=== PATIENT | male | born 1960 | race Caucasian/White ===

== ENCOUNTER 2025-01-04 07:46 | Inpatient (IN) | payer BC ==
[2025-01-04] VITALS (7 sets, daily range): BP systolic 128–140; BP diastolic 69–78; PULSE 79–81; RESP 16–20; TEMP 36.5–36.89184; O2SAT 98–99
[~2025-01-04] VITALS: Ht 175.3 cm; Wt 94.1 kg
[2025-01-04 08:25] LABS: BASOPHILS % 0.9 % (0.0-2.0); EOSINOPHILS % 0.1 % (0.0-5.0); HEMATOCRIT. 23.3 % (42.0-52.0); HEMOGLOBIN. 7.7 g/dL (14.0-18.0); LYMPHOCYTES % 13.6 % (20.0-50.0); MEAN PLATELET VOLUME 8.8 fl (7.4-10.4); MONOCYTES % 4.4 % (2.0-8.0); NEUTROPHILS % 81.0 % (40.0-76.0); PLATELET 332 x1000/uL (130-400); RED BLOOD CELL COUNT 2.43 mill/uL (4.7-6.1); RED CELL DISTRIBUTION WIDTH 15.4 % (11.6-14.6)
[2025-01-04 08:38] LABS: INR 1.0
[2025-01-04 08:41] LABS: CREATININE 1.9 mg/dL (0.6-1.3); UREA NITROGEN BLOOD 62 mg/dL (9-23)
[2025-01-04 08:43] LABS: ASPARTATE AMINOTRANSFERASE 10 IU/L (<34); BILIRUBIN DIRECT 0.2 mg/dL (<=3.0); BILIRUBIN TOTAL 0.9 mg/dL (0.1-1.0); PROTEIN TOTAL 6.5 g/dL (6.0-8.3)
[2025-01-04] MEDS: PANTOPRAZOLE SODIUM 40 MG/VIAL IV ONE (09:50)
[2025-01-04] MEDS ORDERED: MAGNESIUM/ALUMINUM HYDROXIDE/SIMETHICONE 30ML UDC PO PRN (11:30)
[2025-01-04] MEDS ORDERED: ACETAMINOPHEN 325MG TABLET PO PRN (11:30)
[2025-01-04] MEDS ORDERED: CLONIDINE 0.1MG TABLET PO PRN (11:30)
[2025-01-04] MEDS ORDERED: ONDANSETRON HCL 4MG/2ML INJ IV PRN (11:30)
[2025-01-04] MEDS ORDERED: MVI, ADULT NO.1 10 ML, FOLIC ACID 1 MG, THIAMINE HCL 100 MG in SODIUM CHLORIDE 0.9% 1,0... IV SCH (11:30)
[2025-01-04] MEDS ORDERED: HYDROCODONE/ACETAMINOPHEN 5/325MG TABLET PO PRN (11:30)
[2025-01-04] MEDS ORDERED: NALOXONE HCL 0.4MG/ML VIAL IV PRN (11:30)
[2025-01-04] MEDS ORDERED: ZOLPIDEM TARTRATE 5MG TABLET PO PRN (11:30)
[2025-01-04] MEDS ORDERED: MORPHINE SULFATE 2 MG/ML INJ (NOT FOR IM USE) IV PRN (11:30)
[2025-01-04 12:07] LABS: CLARITY URINE CLEAR (CLEAR); COLOR URINE YELLOW (YELLOW); GLUCOSE URINE NEGATIVE (NEGATIVE); KETONES URINE NEGATIVE (NEGATIVE); LEUKOCYTE ESTERASE URINE NEGATIVE (NEGATIVE); NITRITE URINE NEGATIVE (NEGATIVE); OCCULT BLOOD URINE NEGATIVE (NEGATIVE); PH URINE 5.0 (4.5-8.0); PROTEIN URINE NEGATIVE (NEGATIVE); SPECIFIC GRAVITY URINE 1.021 (1.005-1.030); UROBILINOGEN URINE 0.2 E.U./dL (0.2-1.0)
[2025-01-04 12:25] LABS: *AMPHETAMINES SCREEN URINE NEGATIVE (NEGATIVE); *BARBITURATES SCREEN URINE NEGATIVE (NEGATIVE); *BENZODIAZEPINES SCREEN URINE NEGATIVE (NEGATIVE); *COCAINE SCREEN URINE NEGATIVE (NEGATIVE); CANNABINOID URINE SCREEN NEGATIVE (NEGATIVE); ECSTASY MDMA SCREEN URINE NEGATIVE (NEGATIVE); METHADONE URINE SCREEN NEGATIVE (NEGATIVE); OPIATES URINE SCREEN NEGATIVE (NEGATIVE); PHENCYCLIDINE URINE SCREEN NEGATIVE (NEGATIVE)
[2025-01-04] MEDS: PANTOPRAZOLE 40MG DR TABLET PO SCH (17:12)
[2025-01-04] MEDS: SUCRALFATE 1G TABLET PO SCH (17:12)
[2025-01-04] MEDS: MVI, ADULT NO.1 10 ML, FOLIC ACID 1 MG, THIAMINE HCL 100 MG in SODIUM CHLORIDE 0.9% 1,0... IV SCH (19:04)
[2025-01-04] MEDS: POTASSIUM CHLORIDE 20MEQ/PACKET PO NR (19:05)
[2025-01-04] MEDS: SODIUM CHLORIDE 0.9% 1,000 ML IV SCH (20:18)
[2025-01-04 20:27] LABS: FOLIC ACID (FOLATE) SERUM 17.39 ng/mL (>5.38)
[2025-01-04 20:28] LABS: VITAMIN B12 SERUM 472 pg/mL (211-911)
[2025-01-05] VITALS: BP 125/75; PULSE 75; RESP 18; TEMP 36.4; O2SAT 99
[2025-01-05 04:04] VITALS: BP 130/71; PULSE 85; RESP 17; TEMP 36.3; O2SAT 99
[2025-01-05 07:47] LABS: BASOPHILS % 0.8 % (0.0-2.0); EOSINOPHILS % 1.4 % (0.0-5.0); HEMATOCRIT. 22.7 % (42.0-52.0); HEMOGLOBIN. 7.7 g/dL (14.0-18.0); LYMPHOCYTES % 22.2 % (20.0-50.0); MEAN PLATELET VOLUME 8.6 fl (7.4-10.4); MONOCYTES % 6.6 % (2.0-8.0); NEUTROPHILS % 69.0 % (40.0-76.0); PLATELET 298 x1000/uL (130-400); RED BLOOD CELL COUNT 2.45 mill/uL (4.7-6.1); RED CELL DISTRIBUTION WIDTH 16.2 % (11.6-14.6)
[2025-01-05 08:00] VITALS: BP 132/60; PULSE 88; RESP 18; TEMP 36.1; O2SAT 98
[2025-01-05 08:08] LABS: CREATININE 1.7 mg/dL (0.6-1.3); UREA NITROGEN BLOOD 47.0 mg/dL (9-23)
[2025-01-05] MEDS ORDERED: PANTOPRAZOLE SODIUM 40 MG/VIAL IV SCH (09:00)
== END 2025-01-05 11:00 | disposition left against medical advice (07) | DRG 378 ==
LOC: ER 07:46 → 6WST 09:28 → EDBEDREQTM 09:31 → EDBEDREQ 09:31 → ENRESERV 12:34
PROVIDERS: ADMIT Internal Medicine; ATTEND Internal Medicine
DX: K57.31 Diverticulosis of large intestine without perforation or abscess with bleeding (principal); D62 Acute posthemorrhagic anemia; N17.9 Acute kidney failure, unspecified; E87.6 Hypokalemia; Z53.29 Procedure and treatment not carried out because of patient's decision for other reasons; F10.10 Alcohol abuse, uncomplicated; I10 Essential (primary) hypertension; E78.5 Hyperlipidemia, unspecified
CPT/HCPCS: 36415; 71045; 74174; 80048; 80076; 80305; 81003; 82607; 82728; 82746; 83540; 83550; 84443; 85014; 85018; 85025; 85044; 86850; 86900; 86920; 93005; 93970; 99291; J2470; J3411; J3490; J7030; P9016

== ENCOUNTER 2025-01-08 08:00 | Inpatient (IN) | payer BC ==
[~2025-01-08] VITALS: Ht 172.7 cm; Wt 108.9 kg
[2025-01-08] VITALS (11 sets, daily range): BP systolic 112–136; BP diastolic 68–78; PULSE 68–83; RESP 15–18; TEMP 36.4–37.05852; O2SAT 99–100
[2025-01-08 08:29] LABS: BASOPHILS % 0.6 % (0.0-2.0); EOSINOPHILS % 0.5 % (0.0-5.0); LYMPHOCYTES % 18.5 % (20.0-50.0); MEAN PLATELET VOLUME 8.3 fl (7.4-10.4); MONOCYTES % 5.5 % (2.0-8.0); NEUTROPHILS % 74.9 % (40.0-76.0); PLATELET 341 x1000/uL (130-400); RED BLOOD CELL COUNT 1.55 mill/uL (4.7-6.1); RED CELL DISTRIBUTION WIDTH 17.0 % (11.6-14.6)
[2025-01-08 08:33] LABS: HEMATOCRIT. 15.0 % (42.0-52.0); HEMOGLOBIN. 5.0 g/dL (14.0-18.0)
[2025-01-08 08:38] LABS: CREATININE 1.8 mg/dL (0.6-1.3); UREA NITROGEN BLOOD 44 mg/dL (9-23)
[2025-01-08 08:40] LABS: TROPONIN I HIGH SENSITIVITY 9 ng/L (3.0-53)
[2025-01-08 08:42] LABS: INR 1.0
[2025-01-08 08:59] LABS: ASPARTATE AMINOTRANSFERASE 9 IU/L (<34); BILIRUBIN DIRECT 0.2 mg/dL (<=3.0); BILIRUBIN TOTAL 0.5 mg/dL (0.1-1.0); PROTEIN TOTAL 5.4 g/dL (6.0-8.3)
[2025-01-08] MEDS: PANTOPRAZOLE SODIUM 40 MG/VIAL IV ONE (09:22)
[2025-01-08] MEDS: PANTOPRAZOLE 80 MG in SODIUM CHLORIDE 0.9% 100 ML IV SCH (09:45)
[2025-01-08] MEDS ORDERED: ATOR10TA69 PO (10:00)
[2025-01-08] MEDS ORDERED: SUCR1TAB PO (10:00)
[2025-01-08] MEDS ORDERED: ONDANSETRON HCL 4MG/2ML INJ IV PRN (10:00)
[2025-01-08] MEDS ORDERED: GUAIFENESIN 200MG/10ML SUGAR FREE UDC PO PRN (10:00)
[2025-01-08] MEDS ORDERED: FAMO20TA8 PO (10:00)
[2025-01-08] MEDS ORDERED: IPRATROPIUM/ALBUTEROL 0.5-3(2.5)MG/3ML NEB HHN PRN (10:00)
[2025-01-08] MEDS ORDERED: DEXTROSE 50% WATER 50ML SYRINGE IV PRN (10:00)
[2025-01-08] MEDS: POTASSIUM CHLORIDE 20MEQ TABLET SR PO SCH (10:27)
[2025-01-08] MEDS: BLOOD SUGAR DIAGNOSTIC STRIP TEST SCH (10:27)
[2025-01-08 10:38] LABS: CLARITY URINE CLEAR (CLEAR); COLOR URINE YELLOW (YELLOW); GLUCOSE URINE NEGATIVE (NEGATIVE); KETONES URINE NEGATIVE (NEGATIVE); LEUKOCYTE ESTERASE URINE NEGATIVE (NEGATIVE); NITRITE URINE NEGATIVE (NEGATIVE); OCCULT BLOOD URINE NEGATIVE (NEGATIVE); PH URINE 5.0 (4.5-8.0); PROTEIN URINE TRACE (NEGATIVE); SPECIFIC GRAVITY URINE 1.019 (1.005-1.030); UROBILINOGEN URINE 0.2 E.U./dL (0.2-1.0)
[2025-01-08 10:53] LABS: HYALINE CASTS URINE 0-5 /lpf; SQUAMOUS EPITHELIAL CELL URINE FEW /lpf (RARE/1+)
[2025-01-08 10:57] LABS: BACTERIA URINE NONE SEEN; RBC URINE NONE SEEN /hpf (0-2); WBC URINE 0-2 /hpf (0-2)
[2025-01-08 11:03] LABS: *AMPHETAMINES SCREEN URINE NEGATIVE (NEGATIVE); *BARBITURATES SCREEN URINE NEGATIVE (NEGATIVE); *BENZODIAZEPINES SCREEN URINE NEGATIVE (NEGATIVE); *COCAINE SCREEN URINE NEGATIVE (NEGATIVE); CANNABINOID URINE SCREEN NEGATIVE (NEGATIVE); ECSTASY MDMA SCREEN URINE NEGATIVE (NEGATIVE); METHADONE URINE SCREEN NEGATIVE (NEGATIVE); OPIATES URINE SCREEN NEGATIVE (NEGATIVE); PHENCYCLIDINE URINE SCREEN NEGATIVE (NEGATIVE)
[2025-01-08] MEDS: LACTATED RINGERS 1,000 ML IV ONE (11:15)
[2025-01-08 16:00] LABS: FOLIC ACID (FOLATE) SERUM 14.72 ng/mL (>5.38); VITAMIN B12 SERUM 375 pg/mL (211-911)
[2025-01-08 22:42] LABS: ETHANOL BLOOD < 10 mg/dL (<10)
[2025-01-08 22:44] LABS: CREATINE KINASE MB FRACTION < 0.5 ng/mL (0.5-3.6); PHOSPHORUS 2.9 mg/dL (2.5-4.9); TROPONIN I HIGH SENSITIVITY 9 ng/L (3.0-53)
[2025-01-08] MEDS: PANTOPRAZOLE SODIUM 40 MG/VIAL IV SCH (22:49)
[2025-01-09] VITALS (16 sets, daily range): BP systolic 109–157; BP diastolic 64–109; PULSE 65–91; RESP 11–21; TEMP 36.3–37.05852; O2SAT 98–100
[2025-01-09 06:52] LABS: INR 1.0
[2025-01-09 06:54] LABS: BASOPHILS % 0.7 % (0.0-2.0); EOSINOPHILS % 1.7 % (0.0-5.0); HEMATOCRIT. 23.2 % (42.0-52.0); HEMOGLOBIN. 7.9 g/dL (14.0-18.0); LYMPHOCYTES % 20.5 % (20.0-50.0); MEAN PLATELET VOLUME 8.8 fl (7.4-10.4); MONOCYTES % 7.1 % (2.0-8.0); NEUTROPHILS % 70.0 % (40.0-76.0); PLATELET 250 x1000/uL (130-400); RED BLOOD CELL COUNT 2.47 mill/uL (4.7-6.1); RED CELL DISTRIBUTION WIDTH 15.4 % (11.6-14.6)
[2025-01-09 06:57] LABS: CREATINE KINASE MB FRACTION < 0.5 ng/mL (0.5-3.6)
[2025-01-09 06:58] LABS: TROPONIN I HIGH SENSITIVITY 10 ng/L (3.0-53)
[2025-01-09 07:00] LABS: CREATININE 1.7 mg/dL (0.6-1.3)
[2025-01-09 07:01] LABS: LDL CHOLESTEROL 48 mg/dL (5-100); T4 FREE 0.94 ng/dL (0.89-1.76); TRIGLYCERIDE 159 mg/dL (0-150); UREA NITROGEN BLOOD 31 mg/dL (9-23)
[2025-01-09 07:03] LABS: PHOSPHORUS 2.9 mg/dL (2.5-4.9)
[2025-01-09] MEDS: KCL 20MEQ/100ML PREMIX 100 ML IV NR (10:29)
[2025-01-09] MEDS ORDERED: LIDOCAINE HCL 1% 10 MG/ML 10ML VIAL ONE ×2 (11:14)
[2025-01-09] MEDS ORDERED: PROPOFOL 200MG/20ML VIAL IV ONE ×2 (11:14)
[2025-01-09] MEDS ORDERED: ONDANSETRON HCL 4MG/2ML INJ IV PRN (11:45)
[2025-01-09] MEDS ORDERED: ACETAMINOPHEN 1,000MG/100ML PREMIX IV PRN (11:45)
[2025-01-09] MEDS ORDERED: MEPERIDINE HCL/PF 25MG/ML CPJ IV PRN (11:45)
[2025-01-09] MEDS ORDERED: LABETALOL 5MG/ML 4ML INJ IV PRN (11:45)
[2025-01-09] MEDS ORDERED: HYDRALAZINE 20MG/ML VIAL IV PRN ×2 (11:45)
[2025-01-09] MEDS ORDERED: HYDROMORPHONE HCL/PF 1MG/ML INJ IV PRN (11:45)
[2025-01-09] MEDS ORDERED: FAMOTIDINE 20MG/2ML VIAL IV PRN (11:45)
[2025-01-09] MEDS: POTASSIUM CHLORIDE 20MEQ TABLET SR PO NR (12:52)
[2025-01-09] MEDS: SUCRALFATE 1G TABLET PO SCH (17:02)
[2025-01-10] VITALS (13 sets, daily range): BP systolic 115–159; BP diastolic 66–119; PULSE 58–90; RESP 13–23; TEMP 36.3–37.1; O2SAT 96–98
[2025-01-10 07:13] LABS: BASOPHILS % 0.8 % (0.0-2.0); EOSINOPHILS % 2.4 % (0.0-5.0); HEMATOCRIT. 25.3 % (42.0-52.0); HEMOGLOBIN. 8.4 g/dL (14.0-18.0); LYMPHOCYTES % 18.0 % (20.0-50.0); MEAN PLATELET VOLUME 8.8 fl (7.4-10.4); MONOCYTES % 6.9 % (2.0-8.0); NEUTROPHILS % 71.9 % (40.0-76.0); PLATELET 305 x1000/uL (130-400); RED BLOOD CELL COUNT 2.67 mill/uL (4.7-6.1); RED CELL DISTRIBUTION WIDTH 16.3 % (11.6-14.6)
[2025-01-10 07:42] LABS: CREATININE 1.6 mg/dL (0.6-1.3); UREA NITROGEN BLOOD 22.0 mg/dL (9-23)
[2025-01-10] MEDS: PANTOPRAZOLE 40MG DR TABLET PO SCH (08:34)
[2025-01-10] MEDS: CYANOCOBALAMIN 1000MCG TABLET PO SCH (08:34)
[2025-01-10] MEDS: POTASSIUM CHLORIDE 20MEQ TABLET SR PO NR (10:36)
[2025-01-11] VITALS: BP 119/48; PULSE 70; RESP 8; TEMP 36.2; O2SAT 96
[2025-01-11 04:00] VITALS: BP 168/101; PULSE 98; RESP 15; TEMP 36.7; O2SAT 98
[2025-01-11] MEDS: CLONIDINE 0.1MG TABLET PO PRN (05:23)
[2025-01-11 07:42] LABS: BASOPHILS % 0.7 % (0.0-2.0); EOSINOPHILS % 1.8 % (0.0-5.0); HEMATOCRIT. 23.8 % (42.0-52.0); HEMOGLOBIN. 8.0 g/dL (14.0-18.0); LYMPHOCYTES % 14.6 % (20.0-50.0); MEAN PLATELET VOLUME 8.7 fl (7.4-10.4); MONOCYTES % 7.6 % (2.0-8.0); NEUTROPHILS % 75.3 % (40.0-76.0); PLATELET 321 x1000/uL (130-400); RED BLOOD CELL COUNT 2.49 mill/uL (4.7-6.1); RED CELL DISTRIBUTION WIDTH 16.2 % (11.6-14.6)
[2025-01-11 08:00] VITALS: BP 129/97; PULSE 64; RESP 14; O2SAT 97
[2025-01-11 08:07] LABS: CREATININE 1.6 mg/dL (0.6-1.3); UREA NITROGEN BLOOD 14.0 mg/dL (9-23)
[2025-01-11] MEDS ORDERED: PROT40 PO (11:39)
[2025-01-11] MEDS ORDERED: CYAN-50 PO (11:39)
[2025-01-11] MEDS ORDERED: SUCR1TAB PO (11:39)
[2025-01-11 11:48] VITALS: BP 129/82; PULSE 82; RESP 18; TEMP 98
[2025-01-11 12:00] VITALS: BP 128/86; PULSE 65; RESP 15; TEMP 36.7; O2SAT 98
== END 2025-01-11 12:59 | disposition home or self-care (01) | DRG 378 ==
LOC: ER 08:00 → EDBEDREQ 08:40 → 5EST 09:41 → EDBEDREQ 09:42 → EDBEDREQTM 09:42 → ENRESERV 14:38
PROVIDERS: ADMIT Hospitalist; ATTEND Hospitalist
PROC: 30233N1 Transfusion of Nonautologous Red Blood Cells into Peripheral Vein, Percutaneous Approach (ICD-10-PCS; 2025-01-08)
PROC: 0DB78ZX Excision of Stomach, Pylorus, Via Natural or Artificial Opening Endoscopic, Diagnostic (ICD-10-PCS; principal; 2025-01-09)
DX: K26.4 Chronic or unspecified duodenal ulcer with hemorrhage (principal); D62 Acute posthemorrhagic anemia; E87.0 Hyperosmolality and hypernatremia; N17.9 Acute kidney failure, unspecified; N18.32 Chronic kidney disease, stage 3b; E87.6 Hypokalemia; I12.9 Hypertensive chronic kidney disease with stage 1 through stage 4 chronic kidney disease, or unspecified chronic kidney disease; D75.89 Other specified diseases of blood and blood-forming organs; E78.5 Hyperlipidemia, unspecified; F10.10 Alcohol abuse, uncomplicated; K29.30 Chronic superficial gastritis without bleeding; Z80.8 Family history of malignant neoplasm of other organs or systems
CPT/HCPCS: 36415; 76700; 80048; 80061; 80076; 80305; 80320; 81003; 82550; 82553; 82607; 82728; 82746; 82962; 83036; 83540; 83550; 83605; 83735; 83880; 83930; 83935; 84100; 84132; 84439; 84443; 84484; 85014; 85018; 85025; 85044; 85379; 86850; 86900; 86920; 88305; 88312; 88313; 93970; 96374; 99291; J2003; J2470; J2704; J3480; J7050; P9016; G0480